=== PATIENT | female | born 1990 | race Caucasian/White ===

== ENCOUNTER 2016-10-19 23:50 | Emergency (ER) | payer BC, OTHER ==
[~2016-10-19] VITALS: Ht 162.6 cm; Wt 67.1 kg
[~2016-10-19 23:50] MED LIST: BENADRYL25 MG PO; DOXYCYCLINE 10100 MG PO; MEDROLDOSEPACK PO; NOHOMEMEDICATIONS; NORCO 5-325 TA1 EACH PO; PEPCID40 MG PO; PREDNISONE 20 M20 MG PO; TYLENOL325 MG; XANAX 0.5 MG0.5 MG PO
[2016-10-20 00:51] LABS: URINE BILIRUBIN NEGATIVE (Negative); URINE BLOOD NEGATIVE (Negative); URINE COLOR YELLOW; URINE GLUCOSE-RANDOM* NEGATIVE (Negative); URINE KETONES NEGATIVE (Negative); URINE NITRITE NEGATIVE (Negative); URINE PROTEIN (DIPSTICK) NEGATIVE (Negative)
[2016-10-20] MEDS ORDERED: AUGMENTIN 875-1 EACH PO (01:04)
[2016-10-20] MEDS ORDERED: FLONASE 0.05%50 MCG NASAL (01:04)
[2016-10-20 01:28] VITALS: BP 131/73
== END 2016-10-20 01:15 | disposition home or self-care (01) ==
LOC: ER 23:50
PROVIDERS: Emergency Medicine
DX: J32.9 Chronic sinusitis, unspecified (principal); F41.0 Panic disorder [episodic paroxysmal anxiety]; Z91.040 Latex allergy status; F10.99 Alcohol use, unspecified with unspecified alcohol-induced disorder

== ENCOUNTER 2017-01-16 20:19 | Emergency (ER) | payer BC, OTHER ==
[~2017-01-16] VITALS: Ht 162.6 cm; Wt 66.2 kg
[~2017-01-16 20:19] MED LIST changes: +AUGMENTIN 875-1 EACH PO; +FLONASE 0.05%50 MCG NASAL
[2017-01-16] MEDS ORDERED: AMOXICILLIN 50500 M1 PO (21:15)
[2017-01-16 21:53] VITALS: BP 122/84
== END 2017-01-16 21:54 | disposition home or self-care (01) ==
LOC: ER 20:19
DX: J02.0 Streptococcal pharyngitis (principal); F41.0 Panic disorder [episodic paroxysmal anxiety]; Z91.040 Latex allergy status